=== PATIENT | male | born 1990 | race Two or more races ===

== ENCOUNTER 2022-01-20 12:40 | Emergency (ER) | payer MEDICAID, OTHER ==
[~2022-01-20] VITALS: Ht 190.5 cm; Wt 120.7 kg
[2022-01-20 12:46] VITALS: BP 177/123
== END 2022-01-20 15:22 | disposition home or self-care (01) ==
LOC: ER 12:40
DX: G44.209 Tension-type headache, unspecified, not intractable (principal); M54.2 Cervicalgia
CPT/HCPCS: 70450